=== PATIENT | female | born 1950 | race Caucasian/White ===

== ENCOUNTER 2018-06-09 23:05 | Emergency (ER) | payer MEDICARE, BC ==
[2018-06-09] MEDS: Iopamidol 612 MG/ML 100 ML Bottle IVPUSH ONE (23:53)
[2018-06-09 23:55] LABS: CHLORIDE,CL 99 mEq/L (98-106); SODIUM,NA 141 mEq/L (136-145)
[2018-06-10] MEDS: fentaNYL 100 MCG/2 ML SDV IVPUSH ONE (00:14)
--- NOTE | 2018-06-10 00:20 | EDM.PDOC ---
ED HPI GENERAL MEDICAL PROBLEM - General Chief Complaint: Abdominal Pain Stated Complaint: left side pain Time Seen by Provider: 06/09/18 23:10 Source of Information: Reports: Patient History Limitations: Reports: No Limitations - History of Present Illness INITIAL COMMENTS - FREE TEXT/NARRATIVE: Faiza is a 68 yr old female who presents to the ER with complaints of left lower abdominal pain. States the pain started this afternoon and has gradually worsened. Admits to having similar symptoms many years ago and isn't sure what exactly caused it. States she has fibromyalgia and has chronic pains all the time. States she was in [place] today and prior to leaving had a normal bowel movement. Denies any diarrhea or constipation. States the pain really doesn't radiate anywhere. Has history of diverticulitis. Onset: Today Duration: Getting Worse Location: Reports: Abdomen Treatments FINISHER PLATE: Reports: Other (see below) Other Treatments FINISHER PLATE: none Left Middle Abdominal Pain Score (Numeric/FACES): 9 - Related Data Allergies Allergy/AdvReac Type Severity Reaction Status Date / Time amoxicillin trihydrate Allergy Stomach Verified 06/09/18 23:10 [From Amoxil] Upset azithromycin [From Zithromax] Allergy Rash Verified 06/09/18 23:10 codeine Allergy Nausea Verified 06/09/18 23:10 levofloxacin [From Levaquin] Allergy Hives Verified 06/09/18 23:10 morphine Allergy Vomiting Verified 06/09/18 23:10 Sulfa (Sulfonamide Allergy Rash Verified 06/09/18 23:10 Antibiotics) Home Meds: Home Meds Atenolol [Tenormin] 25 mg PO DAILY 06/21/14 [History] Cyclobenzaprine HCl 10 mg PO BEDTIME 06/21/14 [History] DULoxetine [Cymbalta] 60 mg PO BEDTIME 06/21/14 [History] Etanercept [Enbrel] 1 injection SUBCUT ASDIRECTED 06/21/14 [History] Hydrocodone/Acetaminophen [Hydrocodone-Acetaminophen 5-325] 1 tab PO ASDIRECTED PRN 06/21/14 [History] Oxybutynin [Ditropan XL] 15 mg PO BEDTIME 06/21/14 [History] Pantoprazole Sodium 40 mg PO BEDTIME 06/21/14 [History] Simvastatin 10 mg PO BEDTIME 06/21/14 [History] Aspirin [Halfprin] 81 mg PO DAILY 03/28/16 [History] Cholecalciferol (Vitamin D3) [Vitamin D3] 2,000 unit PO DAILY 03/28/16 [History] Ferrous Sulfate [Iron] 325 mg PO DAILY 03/28/16 [History] Folic Acid 1 mg PO DAILY 03/28/16 [History] Loratadine [Claritin] 10 mg PO DAILY PRN 03/28/16 [History] Losartan Potassium [Cozaar] 50 mg PO DAILY 03/28/16 [History] Magnesium 250 mg PO DAILY 03/28/16 [History] predniSONE [Prednisone] 2.5 mg PO DAILY 03/28/16 [History] Folic Acid 1 tab PO DAILY 06/09/18 [History] Torsemide 20 mg PO DAILY 06/09/18 [History] metroNIDAZOLE [Flagyl] 500 mg PO TID 06/09/18 [History] traMADol HCl [Tramadol HCl] 1 tab PO Q4H PRN 06/09/18 [History] Past Medical History HEENT History: Reports: Cataract Cardiovascular History: Reports: Blood Clots/VTE/DVT, High Cholesterol, Hypertension Respiratory History: Reports: PE Gastrointestinal History: Reports: Cholelithiasis, Chronic Diarrhea, Colon Polyp , Diverticulosis, PUD Genitourinary History: Reports: Urinary Incontinence Musculoskeletal History: Reports: Back Pain, Chronic Neurological History: Reports: Migraines Psychiatric History: Reports: Depression Endocrine/Metabolic History: Reports: Obesity/BMI 30+ - Past Surgical History HEENT Surgical History: Reports: Cataract Surgery Cardiovascular Surgical History: Reports: None Respiratory Surgical History: Reports: None GI Surgical History: Reports: Appendectomy, Cholecystectomy Female Surgical History: Reports: Hysterectomy, Oophorectomy Musculoskeletal Surgical History: Reports: Carpal Tunnel, Hip Replacement, Knee Replacement, Other (See Below) Other Musculoskeletal Surgeries/Procedures:: BACK SURGERY AND TWO ROTATOR CUFF SURGERIES Social & Family History - Family History Cardiac: Reports: Hypertension, [place] - Tobacco Use Smoking Status *Q: Never Smoker - Recreational Drug Use Recreational Drug Use: No - Living Situation & Occupation Living situation: Reports: , with Spouse Occupation: Retired ED ROS GENERAL - Review of Systems Review Of Systems: See Below Constitutional: Reports: Decreased Appetite. Denies: Fever, Chills HEENT: Reports: No Symptoms Respiratory: Reports: No Symptoms Cardiovascular: Reports: No Symptoms GI/Abdominal: Reports: Abdominal Pain, Decreased Appetite, Nausea. Denies: Constipation, Diarrhea, Hematochezia, Melena, Vomiting : Reports: No Symptoms Musculoskeletal: Reports: No Symptoms Neurological: Reports: No Symptoms ED EXAM, GI/ABD - Physical Exam Exam: See Below Exam Limited By: No Limitations General Appearance: Alert, Mild Distress, Obese. No: Lethargic Eyes: Bilateral: Normal Appearance Ears: Normal External Exam, Normal Canal, Hearing Grossly Normal, Normal TMs Nose: Normal Inspection, No Blood Throat/Mouth: Normal Inspection, Normal Lips, Normal Gums, Normal Oropharynx, Normal Voice, No Airway Compromise Head: Atraumatic, Normocephalic Neck: Normal Inspection, Supple Respiratory/Chest: No Respiratory Distress, Lungs Clear, Normal Breath Sounds Cardiovascular: Regular Rate, Rhythm, No Edema, No Murmur GI/Abdominal Exam: Normal Bowel Sounds, Soft, No Distention, No Abnormal Bruit, No Mass, Tender (LLQ). No: Hepatomegaly, Splenomegaly Back Exam: CVA Tenderness (L). No: CVA Tenderness (R) Extremities: Normal Inspection, No Pedal Edema, Normal Capillary Refill Neurological: Alert, Oriented, Normal Cognition Psychiatric: Normal Affect, Normal Mood Skin Exam: Warm, Dry, Intact, Normal Color, No Rash Course - Vital Signs Last Recorded V/S: Last Vital Signs Temp 98.6 F 06/10/18 00:20 Pulse 96 06/10/18 00:20 Resp 18 06/10/18 00:20 BP 110/70 06/10/18 00:20 Pulse Ox 94 L 06/10/18 00:20 - Orders/Labs/Meds Orders: Active Orders 24 hr Category Date Time Status Abdomen Pelvis w Cont [CT] Stat Exams 06/09/18 23:23 Taken UA W/MICROSCOPIC [URIN] Stat Lab 06/09/18 23:28 Ordered Labs: Laboratory Tests 06/09/18 06/09/18 06/09/18 Range/Units 23:28 23:32 23:32 WBC 14.7 H (5.0-10.0) 10^3/uL RBC 4.96 (4.00-5.50) 10^6/uL Hgb 14.3 (12.0-16.0) g/dL Hct 44.2 (37.0-47.0) % MCV 89.1 (82.0-94.0) fL MCH 28.8 (27.0-32.0) pg MCHC 32.4 L (33.0-38.0) g/dL RDW Coeff of Tiffany 15.5 H (11.0-15.0) % Plt Count 378 (150-400) 10^3/uL Neut % (Auto) 62.9 (35-85) % Lymph % (Auto) 22.9 (10-55) % [place] % (Auto) 11.5 (0-16) % Eos % (Auto) 2.3 (0-5) % Baso % (Auto) 0.4 (0-3) % Neut # (Auto) 9.22 H (1.80-7.00) 10^3/uL Lymph # (Auto) 3.36 (1.00-4.80) 10^3/uL [place] # (Auto) 1.69 H (0.00-0.80) 10^3/uL Eos # (Auto) 0.33 (0.00-0.45) 10^3/uL Baso # (Auto) 0.06 10^3/uL Sodium 141 (136-145) mEq/L Potassium 3.4 L (3.5-5.0) mEq/L Chloride 99 (98-106) mEq/L Carbon Dioxide 32 (21-32) mmol/L BUN 13 (7-18) mg/dL Creatinine 0.8 (0.6-1.0) mg/dL Est Cr Clr Drug Dosing 47.00 mL/min Estimated GFR (MDRD) > 60 (>=60) mL/min Glucose 121 H (75-99) mg/dL Calcium 9.1 (8.4-10.1) mg/dL Total Bilirubin 0.3 (0.0-1.0) mg/dL AST 23 (15-37) U/L ALT 31 (12-78) U/L Alkaline Phosphatase 163 H (46-116) U/L C-Reactive Protein 3.4 H (0.2-0.8) mg/dL Total Protein 7.5 (6.4-8.2) g/dL Albumin 3.2 L (3.4-5.0) g/dL Urine Color Straw (YELLOW) Urine Appearance Slightly cloudy (CLEAR) Urine pH 5.5 (4.5-8.0) Ur Specific [place] 1.020 (1.003-1.020) Urine Protein 30 H (NEGATIVE) mg/dL Urine Glucose (UA) Negative (NEGATIVE) mg/dL Urine Ketones Negative (NEGATIVE) mg/dL Urine Occult Blood Negative (NEGATIVE) Urine Nitrite Negative (NEGATIVE) Urine Bilirubin Negative (NEGATIVE) Urine Urobilinogen 0.2 (0.2-1.0) EU/dL Ur Leukocyte Esterase Small H (NEGATIVE) Urine RBC Not seen (0-5) /HPF Urine WBC 30-40 H (0-5) /HPF Ur Epithelial Cells Many H (NOT SEEN) /HPF Urine Bacteria Many H (NOT SEEN) /HPF Urinalysis Comment See note Meds: Medications Discontinued Medications Generic Name Dose Route Start Last Admin Trade Name Alex PRN Reason Stop Dose Admin Fentanyl 50 mcg 06/10/18 00:10 06/10/18 00:14 Sublimaze IVPUSH 06/10/18 00:11 50 mcg ONETIME ONE Administration Iopamidol 100 ml 06/09/18 23:24 06/09/18 23:53 Isovue-300 (61%) IVPUSH 06/09/18 23:25 100 ml ONETIME ONE Administration Departure - Departure Time of Disposition: 00:35 Disposition: Home, Self-Care 01 Clinical Impression: Abdominal pain Qualifiers: Abdominal location: left lower quadrant Qualified Code(s): R10.32 - Left lower quadrant pain - Discharge Information *PRESCRIPTION DRUG MONITORING PROGRAM REVIEWED*: No *COPY OF PRESCRIPTION DRUG MONITORING REPORT IN PATIENT GIOVANI: No Instructions: Abdominal Pain, Adult, [id number] Forms: ED Department Discharge Additional Instructions: 1) Recommend using prescribed pain medications as directed. 2) Advise pushing fluids, increasing water intake 3) No acute cause identified on CT scan 4) Recommend recheck with primary in 2 weeks for follow up 5) Advise if pain worsens or any new onset of symptoms to return to ER. - Problem List & Annotations (1) Abdominal pain SNOMED Code(s): 53474547 Code(s): R10.9 - UNSPECIFIED ABDOMINAL PAIN Status: Acute Current Visit: Yes Qualifiers: Abdominal location: left lower quadrant Qualified Code(s): R10.32 - Left lower quadrant pain - Problem List Review Problem List Initiated/Reviewed/Updated: Yes - My Orders Last 24 Hours: My Active Orders 06/09/18 23:23 Abdomen Pelvis w Cont [CT] Stat 06/09/18 23:28 UA W/MICROSCOPIC [URIN] Stat - Assessment/Plan Last 24 Hours: My Active Orders 06/09/18 23:23 Abdomen Pelvis w Cont [CT] Stat 06/09/18 23:28 UA W/MICROSCOPIC [URIN] Stat Plan: No definitive cause of abdominal pain identified. CT scan was grossly unremarkable for acute findings. Discussed with [facility] home cares at this time and if any complications or worsening of condition to return to ER. She has been doing well in ER prior to discharge. Has not appeared to be in any distress or discomfort presently. She was given 50mcg of Fentanyl on arrival and seems to be doing quite well. Faiza is to be discharged in satisfactory condition.
[2018-06-10 00:24] VITALS: BP 110/70
== END 2018-06-10 00:50 | disposition home or self-care (01) ==
LOC: CC.ED 23:05
DX: R10.32 Left lower quadrant pain (principal); K42.9 Umbilical hernia without obstruction or gangrene; I10 Essential (primary) hypertension; E78.00 Pure hypercholesterolemia, unspecified; F32.9 Major depressive disorder, single episode, unspecified; Z88.1 Allergy status to other antibiotic agents; Z88.5 Allergy status to narcotic agent; Z88.2 Allergy status to sulfonamides; Z79.82 Long term (current) use of aspirin; Z79.899 Other long term (current) drug therapy
CPT/HCPCS: 36415; 74177; 80053; 81001; 85025; 86140; 96374; 99284; J3010; Q9967